=== PATIENT | female | born 1985 | race American Indian/Alaskan Native ===

== ENCOUNTER 2016-06-24 10:40 | Inpatient (IN) | payer MEDICAID ==
[2016-06-24] MEDS ORDERED: PITOCin/NS 30 UNIT/500ML 30 UNIT/500 ML BAG IV SCH (12:15)
[2016-06-24] MEDS ORDERED: NORCO 5/325 PO PRN (14:44)
[2016-06-24] MEDS ORDERED: MILK OF MAGNESIA PO PRN (14:44)
[2016-06-24] MEDS ORDERED: TYLENOL PO PRN (14:44)
[2016-06-24] MEDS ORDERED: BENADRYL PO PRN (14:44)
[2016-06-24] MEDS ORDERED: PHENERGAN PO PRN (14:44)
[2016-06-24] MEDS ORDERED: TUCKS PAD TP PRN (14:44)
[2016-06-24] MEDS ORDERED: DERMOPLAST TP PRN (14:44)
[2016-06-24] MEDS ORDERED: PHENERGAN PR PRN (14:44)
[2016-06-24] MEDS ORDERED: DULCOLAX PR PRN (14:44)
[2016-06-24] MEDS ORDERED: LANSINOH TP PRN (14:44)
[2016-06-24] MEDS ORDERED: ZOFRAN IV PRN (14:44)
--- NOTE | 2016-06-24 14:44 | Procedure Note ---
OB Delivery Note - Delivery Date of Delivery: 06/24/16 (7-4oz female @ [id number]) Surgeon: SHIRA PINEDO Estimated blood loss: <100cc - Vaginal Delivery presentation: vertex Delivery position: OA Intrapartum events: none Delivery induction: AROM Delivery augmentation: rupture of membranes, pitocin Delivery monitor: external FHT, external uterine Route of delivery: Delivery placenta: spontaneous Delivery cord: 3 umbilical vessels Episiotomy: none Delivery laceration: none Anesthesia: epidural - A at 1 minute: 8 at 5 minutes: 9 Infant Gender: Female (Precip delivery of viable female. Epidural placed 8cm, comfortable. No FHT's noted on moniter RN, arrrived at BS and baby spont. delivered in bed. Spont placenta, Cord blood collected. FF 2 below, U, ML, bleeding scant. Pitocin infusing. No lacerations.)
[2016-06-24] MEDS ORDERED: ePHEDrine SULFATE IV PRN (14:45)
[2016-06-24] MEDS ORDERED: NARCAN 2 MG/2 ML IV PRN (14:45)
--- NOTE | 2016-06-24 14:45 | Anesthesia Consultation ---
Anesthesia Consult and Med Hx Date of service: 06/24/16 - Airway Anesthetic Teeth Evaluation: Good ROM Head & Neck: Adequate Mental/Hyoid Distance: Adequate Mallampati Class: Class II Intubation Access Assessment: Probably Good - Pre-Operative Health Status ASA Pre-Surgery Classification: ASA2 Proposed Anesthetic Plan: Epidural, Spinal
[2016-06-24] MEDS ORDERED: SODIUM CHLORIDE FLUSH SYRINGE 10 ML IV NR (15:00)
[2016-06-24] MEDS ORDERED: fentaNYL-BUPIV 2 MCG/ML-0.125% 200 MCG/100 ML BAG EPIDURAL SCH (15:00)
[2016-06-24] MEDS: MOTRIN PO SCH ×2 (16:02→22:43)
[2016-06-24 22:13] LABS: Basophils % (Auto) 0.3 % (0.0-1.8); Eosinophils % (Auto) 0.6 % (0.0-4.3); Hematocrit 33.1 % (30.3-42.9); Hemoglobin 10.8 gm/dl (10.1-14.3); Mean Corpuscular HGB Conc 33 % (30-34); Mean Corpuscular Hemoglobin 27 pg (28-32); Mean Corpuscular Volume 83 fl (79-97); Platelet Count 272 K/mm3 (140-440); Red Blood Count 3.97 M/mm3 (3.65-5.03); Red Cell Distribution Width 14.2 % (13.2-15.2)
[2016-06-25] MEDS: MOTRIN PO SCH ×3 (04:32→18:20)
[2016-06-25] MEDS ORDERED: BOOSTRIX IM ONE ×2 (06:05→14:44)
[2016-06-25 06:42] LABS: Hematocrit 29.3 % (30.3-42.9); Hemoglobin 9.8 gm/dl (10.1-14.3)
--- NOTE | 2016-06-25 09:22 | Progress Note ---
Assessment and Plan O: VSS AF PP H/h: 9.8/29.3 A: Stable PP Day 1 Anemia P: Iron BID Subjective - Subjective Date of service: 06/25/16 Patient reports: appetite normal, voiding normally, pain well controlled, ambulating normally : doing well Objective - Vital Signs Latest vital signs: Vital Signs Temp Pulse Resp BP 06/25/16 00:00 98.1 F 62 20 101/55 06/24/16 20:00 98.2 F 55 L 20 109/64 06/24/16 17:45 98.1 F 66 18 110/65 Intake and Output 06/24/16 06/25/16 06/25/16 22:59 06:59 14:59 Intake Total 120 Output Total 300 Balance -180 Intake: Oral 120 Output: Urine 300 Void 300 Other: Total, Intake Amount 120 Total, Output Amount 300 Weight 107.955 kg - Exam Breasts: Present: normal Abdomen: Present: normal appearance, soft. Absent: distention, tenderness Vulva: both: normal Uterus: Present: normal, firm, fundal height at umbilicus. Absent: bogginess, tenderness Extremities: Present: normal. Absent: edema - Labs Labs: Abnormal lab results 06/24/16 06/25/16 Range/Units 11:40 05:30 Hgb 9.8 L (10.1-14.3) gm/dl Hct 29.3 L (30.3-42.9) % MCH 27 L (28-32) pg [place] % (Auto) 7.4 H (0.0-7.3) %
--- NOTE | 2016-06-25 09:44 | Discharge Summary ---
Providers - Providers Date of Admission: 06/24/16 10:40 Date of discharge: 06/26/16 Attending physician: ELIAS SANCHEZ Primary care physician: [facility]PERATIONS MANAGER Hospitalization Reason for admission: active labor, IUP at term Episiotomy: none Laceration: none Other procedures: none complications: none Discharge diagnosis: IUP at term delivered [place] baby: female Condition at discharge: Good Disposition: DISCHARGED TO HOME OR SELFCARE Plan - Discharge Medications Prescriptions: Ferrous Sulfate [Feosol 325 MG tab] 325 mg PO TID #120 tablet Ibuprofen [Motrin] 800 mg PO Q8HR PRN #30 tablet PRN Reason: Pain - Provider Discharge Summary Activity: routine, no sex for 6 weeks, no heavy lifting 4 weeks, no strenuous exercise Diet: routine Instructions: routine Additional instructions: [] Smoking cessation referral if applicable(refer to patient education folder for contact #) [] Refer to [facility] Booklet Call your doctor immediately for: * Fever > 100.5 * Heavy vaginal bleeding ( >1 pad per hour) * Severe persistent headache * Shortness of breath * Reddened, hot, painful area to leg or breast * Drainage or odor from incision. * Keep incision clean and dry at all times and follow doctor's instructions regarding bathing/showering - Follow up plan Follow up: SHIRA PINEDO CNM [Advanced Practice Nurse] - (RTO 4 weeks )
[2016-06-25] MEDS: PRENATAL VITAMIN PO SCH (12:20)
--- NOTE | 2016-06-25 12:45 | Progress Note ---
Subjective Date of service: 06/25/16 Interval history: 1st day after normal vaginal delivery Patient is comfortable. Pain is controlled with pain meds. Ambulated well. No residual neurological deficit. No nausea or vomiting. No anesthesia complications Objective - Constitutional Vitals: Vital Signs - 12hr 06/25/16 08:20 Temperature 98.5 F Pulse Rate [ 64 Radial] Respiratory 18 Rate Blood Pressure 106/60 [Left Arm] - Labs CBC & Chem 7: 06/25/16 05:30 Labs: Abnormal lab results 06/24/16 06/25/16 Range/Units 11:40 05:30 Hgb 9.8 L (10.1-14.3) gm/dl Hct 29.3 L (30.3-42.9) % MCH 27 L (28-32) pg [place] % (Auto) 7.4 H (0.0-7.3) %
[2016-06-25] MEDS ORDERED: M-M-R II VACCINE SUB-Q ONE (14:44)
[2016-06-25] MEDS ORDERED: FLUARIX QUAD 2016-2017(36 MOS+) IM ONE (18:00)
[2016-06-26] MEDS: MOTRIN PO SCH ×3 (00:09→12:15)
[2016-06-26] MEDS: PRENATAL VITAMIN PO SCH (10:51)
[2016-06-26 16:40] VITALS: BP 104/54
== END 2016-06-26 17:14 | disposition home or self-care (01) | DRG 775 ==
LOC: LD 10:40 → OB 17:38
PROVIDERS: ADMIT Obstetrics & Gynecology; ATTEND Obstetrics & Gynecology
PROC: 10E0XZZ Delivery of Products of Conception, External Approach (ICD-10-PCS; principal; 2016-06-24)
PROC: 10907ZC Drainage of Amniotic Fluid, Therapeutic from Products of Conception, Via Natural or Artificial Opening (ICD-10-PCS; 2016-06-24)
PROC: 3E0S3CZ (ICD-10-PCS; 2016-06-24)
PROC: 00HU33Z Insertion of Infusion Device into Spinal Canal, Percutaneous Approach (ICD-10-PCS; 2016-06-24)
DX: O62.3 Precipitate labor (principal); Z3A.39 39 weeks gestation of pregnancy; Z37.0 Single live birth; O90.81 Anemia of the puerperium
CPT/HCPCS: 36415; 85014; 85018; 85025; 86850; 86900; 86901; 90471; 90686

== ENCOUNTER 2016-09-20 13:10 | Emergency (ER) | payer MEDICAID ==
[2016-09-20 13:40] VITALS: BP 118/60
--- NOTE | 2016-09-20 15:20 | Emergency Department Report ---
ED Eye Problem HPI - General Chief complaint: Eye Problems Stated complaint: NEED EYE CHECKED Time Seen by Provider: 09/20/16 15:05 Source: patient Mode of arrival: Ambulatory Limitations: No Limitations - History of Present Illness Initial comments: PT c/o swelling to Left lower eye lid x 1.5 months. PT states she has been doing warm compresses but no improvement. PT states she is waking up with drainage and crusting. PT wearing glasses but states they are not prescription. chief complaint: eye pain Onset/Timin -: Gradual, week(s) Onset Description: gradual Location: left eye If Injury: none Eye Symptoms: pain, discharge Severity scale (0 -10): 8 If Pain, Quality: aching Consistency: constant Associated Symptoms: denies: headache, neck pain, nausea/vomiting Treatments Prior to Arrival: other (warm compress ) - Related Data Previous Rx's Medication Instructions Recorded Last Taken Type Erythromycin [Erythromycin Ophth 1 cm OS QID 7 Days 09/20/16 Unknown Rx Oint] Ibuprofen [Motrin] 600 mg PO Q8H PRN #15 tablet 09/20/16 Unknown Rx Sulfamethoxazole/Trimethoprim 1 each PO BID #20 tablet 09/20/16 Unknown Rx [Bactrim DS TAB] Allergies Allergy/AdvReac Type Severity Reaction Status Date / Time No Known Allergies Allergy Verified 07/27/16 11:37 ED Review of Systems ROS: Stated complaint: NEED EYE CHECKED Other details as noted in HPI Comment: All other systems reviewed and negative Constitutional: denies: chills, fever Eyes: other (swelling to lower left eyelid ) ENT: denies: congestion Genitourinary: denies: abnormal menses (PP 2 months, not breast feeding ) Skin: other (swelling ) ED Past Medical Hx - Past Medical History Hx Hypertension: No Hx Headaches / Migraines: Yes (migraines) Hx Asthma: No Hx HIV: No - Social History Smoking Status: Never Smoker Substance Use Type: None - Medications Home Medications: Home Medications Medication Instructions Recorded Confirmed Last Taken Type Erythromycin [Erythromycin Ophth 1 cm OS QID 7 Days 09/20/16 Unknown Rx Oint] Ibuprofen [Motrin] 600 mg PO Q8H PRN #15 tablet 09/20/16 Unknown Rx Sulfamethoxazole/Trimethoprim 1 each PO BID #20 tablet 09/20/16 Unknown Rx [Bactrim DS TAB] ED Physical Exam - General Limitations: No Limitations General appearance: alert, in no apparent distress - Head Head exam: Present: atraumatic, normocephalic, normal inspection - Eye Eye exam: Present: PERRL, EOMI. Absent: conjunctival injection, nystagmus, periorbital tenderness Pupils: Present: normal accommodation - Expanded Eye Exam Expanded Eyelids: Normal Inspection: Right, Stye: Left (1 cm to lower lid, tender), Erythema: Left, Swelling: Left Pupils: Regular, Round: Bilateral Sclera/Conjunctival: Normal Inspection: Bilateral Anterior chamber: Normal Inspection: Bilateral - ENT ENT exam: Present: normal exam, normal external ear exam - Neck Neck exam: Present: normal inspection. Absent: tenderness - Respiratory Respiratory exam: Present: normal lung sounds bilaterally. Absent: respiratory distress - Cardiovascular Cardiovascular Exam: Present: regular rate, normal rhythm - Extremities Exam Extremities exam: Present: normal inspection, full ROM - Back Exam Back exam: Present: normal inspection, full ROM - Neurological Exam Neurological exam: Present: alert, oriented X3 - Psychiatric Psychiatric exam: Present: normal affect, normal mood - Skin Skin exam: Present: warm, dry, intact, normal color ED Course Vital Signs 09/20/16 13:38 Temperature 97.9 F Pulse Rate 71 Respiratory 18 Rate Blood Pressure 118/60 O2 Sat by Pulse 98 Oximetry - Reevaluation(s) Reevaluation #1: 09/20/16 15:20 PT aware of dx and plan of care. PT aware she must follow up with [facility] - Pulse Oximetry Interpretation Digit-Finger Initial Pulse Oximetry Readin ED Medical Decision Making - Differential Diagnosis stye, cellulitis Critical Care Time: No Critical care attestation.: If time is entered above; I have spent that time in minutes in the direct care of this critically ill patient, excluding procedure time. ED Disposition Clinical Impression: Hordeolum of left lower eyelid Qualifiers: Hordeolum type: externum Qualified Code(s): H00.015 - Hordeolum externum left lower eyelid Disposition: DISCHARGED TO HOME OR SELFCARE Is pt being admited?: No Does the pt Need Aspirin: No Condition: Stable Instructions: Stye (ED) Additional Instructions: continue warm compresses good hand hygiene Follow up with appliance tester in 2-3 days Prescriptions: Erythromycin [Erythromycin Ophth Oint] 1 cm OS QID 7 Days Ibuprofen [Motrin] 600 mg PO Q8H PRN #15 tablet PRN Reason: Pain Sulfamethoxazole/Trimethoprim [Bactrim DS TAB] 1 each PO BID #20 tablet Referrals: PRIMARY CARE, [Primary Care Provider] - 3-5 Days Time of Disposition: 15:27
== END 2016-09-20 16:20 | disposition home or self-care (01) ==
LOC: ED 13:10
DX: H00.015 Hordeolum externum left lower eyelid (principal); G43.909 Migraine, unspecified, not intractable, without status migrainosus
CPT/HCPCS: 99282